=== PATIENT | female | born 1995 | race Caucasian/White ===

== ENCOUNTER 2016-06-22 23:15 | Emergency (ER) | payer OTHER ==
[2016-06-23 01:55] LABS: SPECIFIC GRAVITY 1.025 (1.001-1.030); URINE BILIRUBIN NEGATIVE (NEGATIVE); URINE BLOOD 1+ (NEGATIVE); URINE GLUCOSE (UA) NEGATIVE (NEGATIVE); URINE LEUKOCYTE ESTERASE NEGATIVE (NEGATIVE); URINE NITRITE NEGATIVE (NEGATIVE); URINE PROTEIN NEGATIVE (NEGATIVE); URINE UROBILINOGEN NORMAL (0-1 mg/dl)
[2016-06-23 01:57] LABS: URINE APPEARANCE CLEAR; URINE COLOR YELLOW
[2016-06-23 01:58] LABS: HCG,QUALITATIVE URINE NEGATIVE
[2016-06-23 02:04] LABS: URINE BACTERIA 0
== END 2016-06-23 03:21 | disposition home or self-care (01) ==
LOC: ED 23:15
DX: R11.10 Vomiting, unspecified (principal); Z32.02 Encounter for pregnancy test, result negative